=== PATIENT | female | born 1980 | race Caucasian/White ===

== ENCOUNTER → 2016-09-17 | Day surgery (SDC) | payer OTHER ==
[2016-09-16 09:22] VITALS: BP 99/72
[2016-09-16 10:11] LABS: BASO % 0.4 % (0.0-1.0); EOS # 0.1 10*3/uL (0.0-0.4); EOS % 1.1 % (1.0-4.0); HEMATOCRIT 43.3 % (37.0-47.0); HEMOGLOBIN 13.9 g/dl (12.0-16.0); LYMPH # 1.9 10*3/uL (1.3-4.4); LYMPH % 27.5 % (27.0-41.0); MEAN CELL VOLUME 87.8 fl (81.0-99.0); MEAN CORPUSCULAR HGB 28.2 pg (27.0-31.0); MEAN CORPUSCULAR HGB CONC 32.1 g/dl (33.0-37.0); MEAN PLATELET VOLUME 9.9 fl (9.6-12.3); MONO # 0.5 10*3/uL (0.1-1.0); MONO % 6.4 % (3.0-9.0); NEUT # 4.5 10*3/uL (2.3-7.9); NEUT % 64.3 % (47.0-73.0); PLATELET COUNT AUTOMATED 300 10*3/uL (130-400); RED BLOOD COUNT 4.93 10*6/uL (4.10-5.10); RED CELL DISTRI WIDTH 13.3 % (0-14.5); WHITE BLOOD COUNT 7.1 10*3/uL (4.8-10.8)
[2016-09-16 10:37] LABS: INTERNATIONAL NORM RATIO 0.9 (2.0-3.5)
[2016-09-16 10:41] LABS: BILIRUBIN NEGATIVE (NEGATIVE); BLOOD NEGATIVE (NEGATIVE); CLARITY SL CLOUDY (CLEAR); COLOR STRAW (YELLOW); GLUCOSE NEGATIVE (NEGATIVE); KETONE NEGATIVE (NEGATIVE); LEUKO ESTERASE NEGATIVE (NEGATIVE); NITRITE NEGATIVE (NEGATIVE); PROTEIN NEGATIVE (NEGATIVE); SPECIFIC GRAVITY <= 1.005 (1.005-1.030); UROBILINOGEN 0.2 E.U./dl (0.2-1.0)
[2016-09-16 10:46] LABS: ALBUMIN 3.7 gm/dl (3.1-4.5); ALKALINE PHOSPHATASE 114 U/L (45-117); BILIRUBIN, DIRECT < 0.1 mg/dL (0.0-0.2); BILIRUBIN, TOTAL 0.3 mg/dl (0.2-1.0); BUN 6 mg/dl (7-24); CARBON DIOXIDE 29 mmol/L (21-32); CHLORIDE 107 mmol/L (98-107); EST GLOM FILT AFRICAN AMERICAN > 60 ml/min; GLUCOSE 91 mg/dL (65-99); POTASSIUM 4.2 mmol/L (3.5-5.1); SGOT/AST 64 IU/L (3-35); SGPT/ALT 108 U/L (12-78); SODIUM 143 mmol/L (136-145); TOTAL PROTEIN 7.8 gm/dL (6.4-8.2)
[2016-09-16 11:14] LABS: BACTERIA 2+; WBC 0-2 wbc/hpf (0-5)
[~2016-09-17] VITALS: Ht 165.1 cm; Wt 111.6 kg
[2016-09-17] VITALS (8 sets, daily range): BP systolic 107–139; BP diastolic 53–77
[~2016-09-17] MED LIST: AMLODIPINE BESYL5 MG PO; CIPRO500 MG PO; CITALOPRAM HYDR10 MG PO; CLARITIN10 MG PO; DICYCLOMINE HCL10 MG PO; HYDROCODONE BIT1 T11 PO; MACROBID100 M1 PO; METOPROLOL SUCC25 M2 PO; NAPROSYN500 MG PO; OMEPRAZOLE40 MG PO; PHENTERMINE H37.5 M1 PO; PRAVASTATIN SOD40 MG PO; TRAZODONE50 MG PO; VITAMIN D-32000 UNI1 PO; ZOFRAN4 MG PO
--- NOTE | ~2016-09-17 | O ---
[place], [place] OPERATIVE NOTE NAME: DIANE BARBER UNIT #: [id number] ROOM: DOCTOR: SANDRA MAYORGA MD BIRTHDATE: [birth year] DOS: 09/17/2016 PREOPERATIVE DIAGNOSIS: Symptomatic cholelithiasis. POSTOPERATIVE DIAGNOSIS: Symptomatic cholelithiasis. PROCEDURE: Laparoscopic cholecystectomy. SURGEON: Sandra Mayorga MD REFUSE AND RECYCLING WORKER: MS3. ANESTHESIA: General with endotracheal. INDICATIONS: This is a 36-year-old lady who came in today with a history of symptomatic gallstones and is here for a laparoscopic cholecystectomy. The procedure and its complications were explained to the patient in detail preoperatively. Complications that were discussed included but were not limited to bleeding, infection, hematoma/seroma/abscess formation, biloma formation, prolonged postoperative pain, damage to underlying vital structures, inadvertent injury to the common bile duct and biloma formation, she agreed to proceed. DESCRIPTION OF PROCEDURE: After identifying the patient, the patient was brought to the operating suite and laid in the supine position. After induction of general anesthesia, timeout procedure was called and the parts were then painted and draped in the usual sterile fashion. An incision in the transverse fashion was made below the umbilicus. The skin and the subcutaneous tissue were incised in the line of the incision. The fascia was incised vertically and Amira port was introduced into the peritoneal cavity and pneumoperitoneum was created. Under direct vision, an epigastric incision of 5 mm and two 5 mm incisions were made in the right upper quadrant and appropriate size ports were introduced. The gallbladder was found to be full of large stones and had chronic inflammation. There were some adhesions between the gallbladder and the omentum, which were taken down with the help of blunt dissection. The gallbladder was retracted superiorly and laterally. The cystic duct was carefully dissected and was clipped 3 times and cut between the first and the second clip. The cystic artery was also dissected, but during the procedure of clipping the cystic artery, there was bleeding that was seen coming from the cystic duct. This was controlled by placing clips over the cystic artery stump after adequate isolation. The gallbladder was then removed from the bed of the gallbladder and put in an EndoCatch bag and removed from the peritoneal cavity and sent for histopathological diagnosis. Thereafter, the liver bed was inspected, and the bladder and the clots in the area of the liver bed and surrounding the liver was sucked away. After adequate hemostasis was confirmed in the liver bed as well as in the region of the cystic artery stump, the right upper quadrant and the epigastric ports were removed and there was no bleeding seen. The umbilical port was also removed and the fascial defect was approximated with the help of [id number] suture with 0 Vicryl. The edges of the skin were approximated after they were infiltrated with local anesthesia. [place], [place] OPERATIVE NOTE NAME: DIANE BARBER UNIT #: [id number] ROOM: DOCTOR: SANDRA MAYORGA MD BIRTHDATE: [birth year] This was approximated with the help of 4-0 Vicryl in a subcuticular running fashion. Dressings were given to all the 4 incisions. The patient tolerated the procedure well. Blood loss was approximately 200 mL. She was extubated uneventfully and brought back to the recovery room in stable fashion. There were no complications. Dr. Sandra Mayorga, the attending surgeon, was present throughout the operating case. Sandra Mayorga MD CM:OPRECORD:OPERATIVE NOTE [id number] SANDRA MAYORGA MD 09/17/16 1746 interface
== END | disposition home or self-care (01) ==
LOC: SDC 09-16 09:30
PROVIDERS: Surgery
DX: K80.10 Calculus of gallbladder with chronic cholecystitis without obstruction (principal); I10 Essential (primary) hypertension; F32.9 Major depressive disorder, single episode, unspecified; F17.210 Nicotine dependence, cigarettes, uncomplicated